=== PATIENT | female | born 1995 | race Caucasian/White ===

== ENCOUNTER 2019-09-27 15:25 | Emergency (ER) | payer SELFPAY ==
[~2019-09-27] VITALS: Ht 152.4 cm; Wt 48.6 kg
[2019-09-27 15:34] VITALS: BP 110/74
[2019-09-27] MEDS ORDERED: KETOROLAC 60 MG/2 ML VIAL. IM ONE (16:15)
[2019-09-27] MEDS ORDERED: SMZ/TMP 800/160MG TABLET. PO ONE (16:15)
[2019-09-27] MEDS ORDERED: LIDOCAINE 1% PF 30 ML VIAL. INJ ONE (16:15)
--- NOTE | 2019-09-27 16:36 | PHYS DOC ---
Past Medical History Past Medical History: No Pertinent History Past Surgical History: No Surgical History Smoking Status: Current Every Day Smoker Alcohol Use: None General Adult EDM: Chief Complaint: ABSCESS HPI: HPI: Patient is a 23 year old female who presents with complaints of noticing an insect bite to her lower back approximately 3 nights ago. Patient states initially it only itched and slowly became painful with increased itching. Patient states she has not had problems with skin infections in the past, however did report having a boil drained from her left axilla several years ago. Patient denies fever chills, any visual changes, any nasal congestion, cough or shortness of breath. Patient denies any chest pains or peripheral swelling, patient denies any abdominal pain, nausea, vomiting, diarrhea, constipation or blood in her stools. Patient denies any problems urinating. Patient does complain of low back pain at the site of the insect bite but denies any pain in her joints. Patient states that she is unaware of any skin rashes and cannot necessarily see the insect bite to notice whether there is a rash or not. Patient denies any headaches focal weaknesses or sensory changes. Patient denies any swelling of her glands, any recent depressions or anxieties or recent life changes. Patient states she is unsure what bit her she only noticed that she had what she describes as a possible mosquito bite on her back. Review of Systems: Review of Systems: Constitutional: Denies fever or chills. Eyes: Denies change in visual acuity. HENT: Denies nasal congestion or sore throat. Respiratory: Denies cough or shortness of breath. Cardiovascular: Denies chest pain or edema. GI: Denies abdominal pain, nausea, vomiting, bloody stools or diarrhea or constipation. : Denies dysuria. Reports last menstrual period normal ending yesterday, denies possibility of being , reports she has not had unprotected sex and is currently on control. Musculoskeletal: Complains of back pain at site of insect bite, denies joint pain. Integument: Denies rash. Patient states she is unaware if there is a rash at the site of the insect bite as she cannot see it. Neurologic: Denies headache, focal weakness or sensory changes. Lymphatic: Denies swollen glands. Psychiatric: Denies depression or anxiety. Denies recent life changes. Heart Score: Risk Factors: Risk Factors: DM, Current or recent (<one month) smoker, HTN, HLP, family history of CAD, obesity. Risk Scores: Score 0 - 3: 2.5% MACE over next 6 weeks - Discharge Home Score 4 - 6: 20.3% MACE over next 6 weeks - Admit for Clinical Observation Score 7 - 10: 72.7% MACE over next 6 weeks - Early Invasive Strategies Family History: Family History: Denies any family history significant to this ER visit today. Current Medications: Current Medications Medications (Trade) Dose Ordered Sig/Anna Marie Start Time Stop Time Status Last Admin Dose Admin Ketorolac Tromethamine (Toradol Im) 60 mg 1X ONCE 09/27/19 16:15 09/27/19 16:16 DC Lidocaine HCl (Xylocaine 1% Pf 30ml Vial) 30 ml 1X ONCE 09/27/19 16:15 09/27/19 16:16 DC Trimethoprim/ Sulfamethoxazole (Bactrim Ds) 1 tab 1X ONCE 09/27/19 16:15 09/27/19 16:16 DC Allergies: Allergies: Allergies Coded Allergies Type Severity Reaction Last Updated Verified brompheniramine Allergy Unknown "HIVES" 09/27/19 Yes phenylpropanolamine Allergy Unknown "HIVES" 09/27/19 Yes Physical Exam: PE: Constitutional: Well developed, well nourished, no acute distress, non-toxic appearance. HENT: Normocephalic, atraumatic, bilateral external ears normal, oropharynx moist, no oral exudates, nose normal. Eyes: PERRLA, EOMI, conjunctiva normal, no discharge. Pupils 4 mm. Neck: Normal range of motion, no tenderness, supple, no stridor. Cardiovascular:Heart rate regular rhythm, no murmur, heart sounds S1-S2, no abnormalities noted per auscultation. Lungs & Thorax: Bilateral breath sounds clear to auscultation all lung mcgee. Abdomen: Bowel sounds normal, soft, no tenderness, no masses, no pulsatile masses. Skin: Warm, dry, there is an approximate 4 cm circular erythematous rash at the approximate height of L1 center of rash 5 cm to the right of the spine, with center punctum expelling purulent drainage. Approximately 1 cm weeping skin lesion from center punctum, the 4 cm erythematous area with induration is fluctuant to palpation, white malodorous purulent drainage was expelled during palpation of the indurated area which elicited pain. Otherwise no other skin rashes or erythematous areas noted. Back: No tenderness, no CVA tenderness. Patient does however complain of tenderness at the site of the skin lesion. Extremities: No tenderness, no cyanosis, no clubbing, ROM intact, no edema. Neurologic: Alert and oriented X 3, normal motor function, normal sensory function, no focal deficits noted. Psychologic: Affect normal, judgement normal, mood normal. Patient denies HI SI. Current Patient Data: Vital Signs: Vital Signs Date Time Temp Pulse Resp B/P (MAP) Pulse Ox O2 Delivery O2 Flow Rate FiO2 09/27/19 15:34 98.2 77 22 110/74 (86) 99 Room Air 98.2 EKG: EKG: [] Radiology/Procedures: Radiology/Procedures: [] Course & Med Decision Making: Course & Med Decision Making Pertinent Labs and Imaging studies reviewed. (See chart for details) 23-year-old female patient arrives to the emergency department today complaining of insect bite to her right lower lumbar area she notes feeling last she described as a mosquito bite approximately 3 evenings ago nonpainful and only itched at the time. Patient stated over the next 3 more days it became worse and her mom looked at it and told her it looked as if it was infected and she should seek medical care. Vital signs were reviewed, patient's complained bite area revealed a 4 cm erythematous indurated area fluctuant to palpation with a central punctum that started draining whitish malodorous purulent drainage when palpated. The exam elicited a severe pain response from the patient. Patient was given IM Toradol 60 mg which helped bring her pain from a 10-10 down to a 2- 3 out of 10. Patient was also given a Bactrim DS in the emergency department. Patient states her last tetanus immunization was less than 5 years ago. Reviewed with patient need to I&D the abscess, patient was amenable to this. Refer to I&D section. I indeed abscess was dressed with nonadherent, 4 x 4 gauze, paper tape. Reviewed discharge instructions which included prescriptions for Bactrim DS for 10 days, mupirocin ointment, 6 count Vicodin 5/325 for initial severe pain, wound care instructions/abscess care instructions, abscess recheck, and return to emergency department concerns. Patient was amenable to discharge home instructions and agreeable to home prescriptions, patient had no further questions or concerns patient discharged home. Dragon Disclaimer: Dragon Disclaimer: This electronic medical record was generated, in whole or in part, using a voice recognition dictation system. Departure Departure Impression: Primary Impression: Abscess Additional Impression: Cellulitis Qualified Codes: L03.312 - Cellulitis of back [any part except buttock] Disposition: HOME, SELF-CARE Condition: GOOD Referrals: NO PCP (PCP) Patient Instructions: Abscess, Abscess, Care After Additional Instructions: Take prescribed medications as directed, return to the emergency department for worsening symptoms, have the infection site rechecked soon. Scripts Hydrocodone Bit/Acetaminophen (HYDROCODONE-APAP 5-325 ) 1 Tab Tablet 1 TAB PO PRN Q6HRS PRN for PAIN, #6 TAB 0 Refills Prov: NOLA BAHENA APRN 09/27/19 Mupirocin (MUPIROCIN OINTMENT) 22 Gm Oint...g. 1 ADRIANNA TP TID for WOUND CARE, #1 TUBE 0 Refills Prov: NOLA BAHENA APRN 09/27/19 Sulfamethoxazole/Trimethoprim (BACTRIM DS TABLET) 1 Each Tablet 1 TAB PO BID for 10 Days, #20 TAB 0 Refills Prov: NOLA BAHENA APRN 09/27/19 Justicifation of Admission Dx: Justifications for Admission: Justification of Admission Dx: N/A Incision and Drainage Indication: abscess Procedure: The patient was positioned appropriately. 4 cc of 1% lidocaine was used for local anesthesia. An incision was then made over the apex/punctum of the lesion and approximately 5 cc of whitish malodorous material was expressed. The drainage cavity was irrigated with 500 cc of normal saline, abscess was not packed due to the small size of the abscess. The I&D area was dressed with nonadherent dressing, then 4 x 4 gauze, then paper tape. The patients tetanus status was up-to-date The patient tolerated the procedure well. I&D/wound care was reviewed with the patient and gave verbal understanding. Complications: none. NOLA BAHENA APRN Sep 27, 2019 16:36
[2019-09-27] MEDS ORDERED: MUPI22OI2 TP (17:15)
[2019-09-27] MEDS ORDERED: SULF1TAB24 PO (17:15)
[2019-09-27] MEDS ORDERED: HYDR-2761 PO (17:15)
== END 2019-09-27 17:23 | disposition home or self-care (01) ==
LOC: ER 15:25
DX: L02.212 Cutaneous abscess of back [any part, except buttock and flank] (principal); F17.200 Nicotine dependence, unspecified, uncomplicated; Z88.8 Allergy status to other drugs, medicaments and biological substances
CPT/HCPCS: 10060; 96372; 99283; J1885; J3490

== ENCOUNTER 2020-03-22 13:17 | Emergency (ER) | payer SELFPAY ==
[~2020-03-22] VITALS: Ht 152.4 cm; Wt 48.1 kg
[~2020-03-22 13:17] MED LIST: HYDR-2761 PO; MUPI22OI2 TP; SULF1TAB24 PO
--- NOTE | 2020-03-22 14:01 | PHYS DOC ---
Past Medical History Past Medical History: No Pertinent History Past Surgical History: No Surgical History Smoking Status: Current Every Day Smoker Alcohol Use: None General Adult EDM: Chief Complaint: SORE THROAT HPI: HPI: Patient is a 24 year old female who presented to ER for evaluation of sore throat, ear ache since yesterday. Patient has nonproductive cough as well. Patient was infected with COVID-19 on November of last year. Patient denies any headache, no nausea vomiting. Review of Systems: Review of Systems: Constitutional: Denies fever or chills. [] Eyes: Denies change in visual acuity. [] HENT: Denies nasal congestion , POSITIVE FOR sore throat. [] Respiratory: POSITIVE FOR cough, NO shortness of breath. [] Cardiovascular: Denies chest pain or edema. [] GI: Denies abdominal pain, nausea, vomiting, bloody stools or diarrhea. [] : Denies dysuria. [] Musculoskeletal: Denies back pain or joint pain. [] Integument: Denies rash. [] Neurologic: Denies headache, focal weakness or sensory changes. [] Endocrine: Denies polyuria or polydipsia. [] Lymphatic: Denies swollen glands. [] Psychiatric: Denies depression or anxiety. [] Heart Score: Risk Factors: Risk Factors: DM, Current or recent (<one month) smoker, HTN, HLP, family history of CAD, obesity. Risk Scores: Score 0 - 3: 2.5% MACE over next 6 weeks - Discharge Home Score 4 - 6: 20.3% MACE over next 6 weeks - Admit for Clinical Observation Score 7 - 10: 72.7% MACE over next 6 weeks - Early Invasive Strategies Allergies: Allergies: Allergies Coded Allergies Type Severity Reaction Last Updated Verified brompheniramine Allergy Unknown "HIVES" 09/27/19 Yes phenylpropanolamine Allergy Unknown "HIVES" 09/27/19 Yes Physical Exam: PE: Constitutional: Well developed, well nourished, no acute distress, non-toxic appearance. [] HENT: Normocephalic, atraumatic, bilateral external ears normal, oropharynx moist WITH oral exudates, TONSILLAR HYPERTROPHY WITH EXUDATION AND ERYTHEMA, UVULA IS MIDLINE, NO TRISMUS, nose normal. [] Eyes: PERRLA, EOMI, conjunctiva normal, no discharge. [] Neck: Normal range of motion, no tenderness, supple, no stridor. Tender, swollen cervical lymph node. Cardiovascular:Heart rate regular rhythm, no murmur [] Lungs & Thorax: Bilateral breath sounds clear to auscultation [] Abdomen: Bowel sounds normal, soft, no tenderness, no masses, no pulsatile masses. [] Skin: Warm, dry, no erythema, no rash. [] Back: No tenderness, no CVA tenderness. [] Extremities: No tenderness, no cyanosis, no clubbing, ROM intact, no edema. [] Neurologic: Alert and oriented X 3, normal motor function, normal sensory function, no focal deficits noted. [] Psychologic: Affect normal, judgement normal, mood normal. [] Current Patient Data: Labs: Laboratory Tests Test 03/22/20 13:46 POC Urine HCG, Qualitative Hcg negative (Negative) Vital Signs: Vital Signs Date Time Temp Pulse Resp B/P (MAP) Pulse Ox O2 Delivery O2 Flow Rate FiO2 03/22/20 13:35 98.0 107 16 126/60 (82) 100 Room Air 98.0 EKG: EKG: [] Radiology/Procedures: Radiology/Procedures: [] Course & Med Decision Making: Course & Med Decision Making Pertinent Labs and Imaging studies reviewed. (See chart for details) [] Dragon Disclaimer: ParentingInformer Disclaimer: This electronic medical record was generated, in whole or in part, using a voice recognition dictation system. Departure Departure Impression: Primary Impression: Acute tonsillitis Disposition: 01 DC HOME SELF CARE/HOMELESS Condition: STABLE Referrals: NO PCP (PCP) FOLLOW UP WITH YOUR DOCTOR THIS WEEK FOR REEVALUATION Patient Instructions: Tonsillitis Additional Instructions: Thank you for visiting our Emergency Department. We appreciate you trusting us with your care. If any additional problems come up don't hesitate to return to visit us. Please follow up with your primary care provider so they can plan additional care if needed and know about the problem that you had. If symptoms worsen come back to the Emergency Department. Any concerning symptoms that start such as chest pain, shortness of air, weakness or numbness on one side of the body, running high fevers or any other concerning symptoms return to the ER. Scripts Amoxicillin (AMOXICILLIN) 500 Mg Capsule 1 CAP PO TID for 10 Days, #30 CAP Prov: EMMA GARCIAS DO 03/22/20 EMMA GARCAIS DO Mar 22, 2020 14:01
[2020-03-22] MEDS ORDERED: AMOX500C PO (14:07)
[2020-03-22] MEDS ORDERED: KETOROLAC 60 MG/2 ML VIAL. IM ONE (14:15)
[2020-03-22] MEDS ORDERED: methylPREDNISolone SOD SUCC PF 125 MG/2 ML VIAL. IM ONE (14:15)
[2020-03-22 14:35] VITALS: BP 108/72
== END 2020-03-22 14:36 | disposition home or self-care (01) ==
LOC: ER 13:17
DX: J03.90 Acute tonsillitis, unspecified (principal); R05 Cough; F17.200 Nicotine dependence, unspecified, uncomplicated; Z88.8 Allergy status to other drugs, medicaments and biological substances
CPT/HCPCS: 81025; 96372; 99284; J1885; J2930